=== PATIENT | female | born 1995 | race Two or more races ===

== ENCOUNTER 2019-12-20 08:49 | Outpatient (CLI) | payer OTHER | END 2019-12-20 08:57 | disposition home or self-care (01) | LOC: LAB 08:49 | DX: R05 Cough (principal); Z20.828 Contact with and (suspected) exposure to other viral communicable diseases ==

== ENCOUNTER → 2020-02-22 10:00 | Outpatient (CLI) | payer OTHER | END | disposition home or self-care (01) | LOC: PPH VACUNA 10:00 | DX: Z23 Encounter for immunization (principal) ==